=== PATIENT | male | born 1955 | race Two or more races ===

== ENCOUNTER 2020-02-24 09:18 | Outpatient (CLI) | payer OTHER | END 2020-02-24 09:30 | disposition home or self-care (01) | LOC: RX STUDY 09:18 | PROVIDERS: ATTEND Internal Medicine Gastroenterology | DX: K44.9 Diaphragmatic hernia without obstruction or gangrene (principal); K31.89 Other diseases of stomach and duodenum; K22.8 Other specified diseases of esophagus; Z86.010 Personal history of colon polyps; K76.0 Fatty (change of) liver, not elsewhere classified; D50.8 Other iron deficiency anemias; D86.89 Sarcoidosis of other sites ==